=== PATIENT | male | born 1990 ===

== ENCOUNTER 2021-09-28 00:46 | Emergency (ER) | payer SELFPAY ==
[2021-09-28 00:53] VITALS: BP 149/99
[2021-09-28] MEDS ORDERED: oxyCODONE /ACETAMINOPHEN 5-325MG TAB PO ONE (01:13)
== END 2021-09-28 02:44 | disposition home or self-care (01) ==
LOC: ED 00:46
DX: K08.89 Other specified disorders of teeth and supporting structures (principal); Z53.21 Procedure and treatment not carried out due to patient leaving prior to being seen by health care provider
CPT/HCPCS: 99282